=== PATIENT | female | born 1995 | race American Indian/Alaskan Native ===

== ENCOUNTER 2018-08-15 23:59 | Inpatient (IN) | payer SELFPAY ==
[2018-08-16] MEDS ORDERED: NACL 0.9% 1000 ML 1,000 ML IV ONE (00:03)
[2018-08-16] MEDS ORDERED: ATROVENT IH ONE (00:03)
[2018-08-16] MEDS ORDERED: ADRENALINE P/F SUB-Q ONE (00:03)
[2018-08-16] MEDS ORDERED: MAGNESIUM SULFATE 2GM/50ML 2 GM/50 ML BAG IV ONE (00:03)
--- NOTE | 2018-08-16 00:09 | Emergency Department Report ---
ED Shortness of Breath HPI - General Stated Complaint: LAMBERTO Time Seen by Provider: 08/16/18 00:02 - History of Present Illness Initial Comments: Analia is a 22 yo female with hx of severe persistent asthma with hx of intubation who presents with severe shortness of breath. She was discovered by EMS outside of her apartment. Limited hx due to severe shortness of breath and work of breathing. Room air oxygen saturation 95% according to EMS - Related Data Allergies Allergy/AdvReac Type Severity Reaction Status Date / Time No Known Allergies Allergy Unverified 08/16/18 00:24 ED Review of Systems ROS: Stated complaint: LAMBERTO Other details as noted in HPI Comment: Unobtainable due to pts medical conditions (severe work of breathing s evere respiratory distress) ED Past Medical Hx - Past Medical History Previous Medical History?: Yes Hx Asthma: Yes - Surgical History Additional Surgical History: Unable to obtain - Family History Family history: other (noncontributory) - Social History Smoking Status: Never Smoker ED Physical Exam - General General appearance: alert, in distress, other (severe respiratory distress or severe work of breathing) - Head Head exam: Present: atraumatic, normocephalic - Eye Eye exam: Present: normal appearance - ENT ENT exam: Present: mucous membranes moist - Neck Neck exam: Present: normal inspection, full ROM - Respiratory Respiratory exam: Present: wheezes, accessory muscle use, decreased breath sounds, prolonged expiratory. Absent: respiratory distress, rales, rhonchi, stridor - Cardiovascular Cardiovascular Exam: Present: normal rhythm, tachycardia, normal heart sounds. Absent: systolic murmur, diastolic murmur, rubs, gallop - GI/Abdominal GI/Abdominal exam: Present: soft, normal bowel sounds. Absent: distended, tenderness, guarding, rebound - Extremities Exam Extremities exam: Present: normal inspection - Back Exam Back exam: Present: normal inspection - Neurological Exam Neurological exam: Present: alert, oriented X3 - Psychiatric Psychiatric exam: Present: anxious - Skin Skin exam: Present: warm, dry, intact, normal color. Absent: rash ED Course Vital Signs 08/16/18 08/16/18 08/16/18 00:04 00:07 00:10 Temperature 96.9 F L Pulse Rate 144 H 149 H 149 H Pulse Rate [ 149 H Bilateral Throughout] Respiratory 17 27 H 28 H Rate Respiratory 28 H Rate [Bilateral Throughout] Blood Pressure 141/92 141/92 O2 Sat by Pulse 96 100 100 Oximetry 08/16/18 08/16/18 08/16/18 00:13 00:15 00:19 Temperature Pulse Rate 149 H 149 H 145 H Pulse Rate [ Bilateral Throughout] Respiratory 19 18 23 Rate Respiratory Rate [Bilateral Throughout] Blood Pressure O2 Sat by Pulse 100 100 99 Oximetry 08/16/18 08/16/18 08/16/18 00:31 00:45 01:01 Temperature Pulse Rate 131 H 142 H Pulse Rate [ Bilateral Throughout] Respiratory 21 Rate Respiratory Rate [Bilateral Throughout] Blood Pressure 141/92 141/92 141/92 O2 Sat by Pulse 100 100 100 Oximetry 08/16/18 01:15 Temperature Pulse Rate Pulse Rate [ Bilateral Throughout] Respiratory Rate Respiratory Rate [Bilateral Throughout] Blood Pressure 141/92 O2 Sat by Pulse 100 Oximetry ED Medical Decision Making - Lab Data Result diagrams: 08/16/18 00:11 08/16/18 00:11 - Radiology Data Radiology results: image reviewed AP portable chest one view: hyperinflated lungs, no infiltrate no PTX - Medical Decision Making Upon patient's arrival, I observed severe work of breathing. On auscultation poor air movement, silent chest. I obtained history from paramedics. I spoke with respiratory therapist who applied BiPAP. I coached patient through our treatment plan. I ordered epinephrine subcutaneous administration, IV magnesium as well as continuous albuterol neb therapy with Atrovent. Upon reassessment, patient speaking full word sentences without BiPAP, however she does still require noninvasive positive pressure ventilation due to work of breathing. Normal and she has severe asthma attacks with infection. She stated that she had developed cold symptoms on yesterday. Last hospitalization was January. Due to lack of health care insurance she does not have asthma control medications. She only has access to albuterol MDI. Admitted to the hospitalist service in fair condition on BiPAP. She declined AB G. Critical Care Time: Yes Critical care time in (mins) excluding proc time.: 40 Critical care attestation.: If time is entered above; I have spent that time in minutes in the direct care of this critically ill patient, excluding procedure time. 40 minutes of critical care time excluding procedures were used in the care of the patient. Patient required multiple assessments and interventions. I reviewed the electronic medical record. I spoke with consultants involved in the care of the patient. ED Disposition Clinical Impression: Acute respiratory failure with hypoxia, Status asthmaticus Disposition: OP ADMIT IP TO THIS HOSP Is pt being admited?: Yes Does the pt Need Aspirin: No Condition: Fair
[2018-08-16] MEDS: PROVENTIL IH ONE ×2 (00:10→00:27)
[2018-08-16 00:29] LABS: Basophils % (Auto) 0.3 % (0.0-1.8); Eosinophils # (Auto) 0.5 K/mm3 (0.0-0.4); Eosinophils % (Auto) 3.5 % (0.0-4.3); Hemoglobin 13.6 gm/dl (10.1-14.3); Lymphocytes # (Auto) 2.5 K/mm3 (1.2-5.4); Lymphocytes % (Auto) 16.3 % (13.4-35.0); Mean Corpuscular HGB Conc 34 % (30-34); Mean Corpuscular Volume 92 fl (79-97); Monocytes # (Auto) 1.2 K/mm3 (0.0-0.8); Monocytes % (Auto) 8.2 % (0.0-7.3); Platelet Count 255 K/mm3 (140-440); Red Blood Count 4.33 M/mm3 (3.65-5.03); Red Cell Distribution Width 14.1 % (13.2-15.2)
[2018-08-16 00:51] LABS: BUN/Creatinine Ratio 10; Blood Urea Nitrogen 6 mg/dL (7-17); Calcium 8.7 mg/dL (8.4-10.2); Hemolysis Index 5
[2018-08-16] MEDS ORDERED: LEVAQUIN PO ONE (01:43)
--- NOTE | 2018-08-16 02:22 | XRay Report ---
FINAL REPORT PROCEDURE: XR CHEST 1V AP TECHNIQUE: Chest radiograph anteroposterior view. CPT 77763 HISTORY: Asthma COMPARISON: No prior studies are available for comparison. FINDINGS: Heart: Normal. Mediastinum/Vessels: Normal. Lungs/Pleural space: Lungs are expanded. There are no infiltrates, effusions or pneumothoraces.. Bony thorax: No acute osseous abnormality. Life support devices: None. IMPRESSION: No acute cardiopulmonary abnormality.
[2018-08-16] MEDS ORDERED: ROBITUSSIN PO ONE (03:44)
[2018-08-16] MEDS ORDERED: TYLENOL PO PRN (03:47)
[2018-08-16] MEDS ORDERED: ZOFRAN IV PRN (03:48)
[2018-08-16] MEDS ORDERED: LEVAQUIN ONE (04:39)
[2018-08-16] MEDS ORDERED: SOLU-Medrol IV ONE ×2 (05:59→08:30)
[2018-08-16] MEDS: PROVENTIL IH PRN (07:57)
--- NOTE | 2018-08-16 07:59 | History and Physical Report ---
CHIEF COMPLAINT: Shortness of breath. HISTORY OF PRESENT ILLNESS: The patient is a 22-year-old female with a history of asthma, that has been treated with intubation in the past, presenting with shortness of breath that became severe. EMS was called. The patient was transported back to the Emergency Room and was found to have recurrent shortness of breath despite treatment. There was no history of fever or chills. No history of chest pain, nausea or vomiting; however, the patient was complaining of cough. PAST MEDICAL HISTORY: Pertinent for asthma. PAST SURGICAL HISTORY: Unremarkable. FAMILY HISTORY: Noncontributory. SOCIAL HISTORY: The patient does not move cigarettes, does not drink alcohol and does not use illicit drugs. MEDICATIONS: The patient's home medications are not known. ALLERGIES: There are no known drug allergies. REVIEW OF SYSTEMS: CONSTITUTIONAL: There is no fever, no chills, no diaphoresis. HEENT: There is no headache or sore throat. CARDIOVASCULAR SYSTEM: There is no chest pain or orthopnea. RESPIRATORY SYSTEM: shortness of breath is present. Cough is present. GASTROINTESTINAL SYSTEM: There is no nausea, no vomiting, no abdominal pain, diarrhea or constipation. NEUROLOGICAL SYSTEM: There is no numbness, no dizziness, no altered mental status. MUSCULOSKELETAL SYSTEM: There is no joint pain or swelling. DERMATOLOGICAL SYSTEM: There is no skin rash or itching. GENITOURINARY SYSTEM: There is no dysuria, hematuria or flank pain. Rest of system review is normal. PHYSICAL EXAMINATION: GENERAL: At the time of exam, the patient was found to be alert, oriented x 3 and in mild to moderate distress due to shortness of breath. VITAL SIGNS: At the initial time of presentation showed temperature of 96.9 degrees Fahrenheit, pulse of 144, respirations 17, blood pressure 141/92, and O2 sat of 96% on oxygen. HEENT: Showed pupils to be equal, round and reactive to light and accommodating. Extraocular muscles are intact. NECK: Supple with no JVD or carotid bruit. CARDIOVASCULAR SYSTEM: Showed normal first and second heart sounds with no gallops or murmurs. RESPIRATORY SYSTEM: Showed reduced air entry on both sides of the lungs with expiratory wheezing. GASTROINTESTINAL SYSTEM: Showed abdomen to be full, soft, nontender with no organomegaly or rigidity. NEUROLOGICAL: Showed no focal deficit. MUSCULOSKELETAL SYSTEM: Showed no joint swelling or tenderness. DERMATOLOGICAL SYSTEM: Showed no skin rash. GENITOURINARY SYSTEM: Showing no costovertebral angle tenderness. PERTINENT AND IMAGING DATA: The patient had CBC done with elevated white count of 15,100. Normal hemoglobin and normal hematocrit with CBC differential showing elevated segmentary neutrophil count of 71.7%. The patient's chemistry was remarkable. The patient had a chest x-ray done that shows no acute cardiopulmonary disease. DIAGNOSES: Asthma exacerbation. PLAN OF CARE: 1. The patient will be admitted to [facility]. 2. The patient will continue BiPAP treatment started in the Emergency Room. 3. The patient will be on IV Levaquin 750 mg daily. 4. The patient will be on albuterol nebulizer 2.5 mg every 4 hours as needed for shortness of breath and wheezing. 5. The patient will be treated with IV Solu-Medrol 125 mg once and then 60 mg IV every 8 hours. 6. The patient will be on Robitussin 200 mg by mouth every 4 hours as needed for cough and will be on p.r.n. medications like Tylenol 650 mg by mouth every 4 hours for fever and headache and IV Zofran 4 mg every 8 hours as needed for nausea and vomiting. 7. The patient will be on regular diet. JOB# [id number] OCN/NTS
[2018-08-16] MEDS: PULMICORT IH SCH ×2 (13:14→20:01)
[2018-08-16] MEDS: BROVANA NEBU IH SCH ×2 (13:15→20:01)
[2018-08-16] MEDS ORDERED: SOLU-Medrol IV SCH (14:00)
--- NOTE | 2018-08-16 14:17 | Consultation ---
History of Present Illness Consult date: 08/16/18 Reason for consult: dyspnea, asthma History of present illness: 32-year-old -[place] female, called to evaluate due to severe asthma episode. The patient reports that she had been sick with a cold last few days and started with shortness of breath and wheezing 24 hours ago. She apparently has albuterol home and she used her rescue inhaler to no avail. EMS were called and they give her urgent treatment at home first and then she was rushed to the ED. There, she was started on BiPAP plus rescue therapy with DuoNeb plus magnesium. She stabilized and was admitted to the floor, after spending some hours on BiPAP. Called to evaluate. The patient reported her breathing is better now. She does report some mild chest tightness. She denies fever. 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 She denies fever or myalgia or runny nose at this time. Some limited expectoration noted. She had asthma since age 13. Claims not to be smoking. Past medical history of near fatal asthma with intubation at age 13 Medications and Allergies Allergies Allergy/AdvReac Type Severity Reaction Status Date / Time No Known Allergies Allergy Verified 08/16/18 03:57 Home Medications Medication Instructions Recorded Confirmed Last Taken Type ALBUTEROL Inhaler(NF) 2 puff PRN PRN 08/16/18 08/16/18 Unknown History Active Meds: Active Medications Acetaminophen (Tylenol) 650 mg PO Q4H PRN PRN Reason: Fever >101 Albuterol (Proventil) 2.5 mg IH Q4H PRN PRN Reason: Shortness Of Breath Last Admin: 08/16/18 07:57 Dose: 2.5 mg Documented by: Arformoterol Tartrate (Brovana Nebu) 15 mcg IH Q12HRT XENA Last Admin: 08/16/18 13:15 Dose: 15 mcg Documented by: Budesonide (Pulmicort) 0.5 mg IH Q12HRT XENA Last Admin: 08/16/18 13:14 Dose: 0.5 mg Documented by: Levofloxacin/Dextrose (Levaquin 750mg/150ml) 750 mg in 150 mls @ 100 mls/hr IV Q24H XENA; Protocol Methylprednisolone Sodium Succinate (Solu-Medrol) 60 mg IV Q8HR XENA Ondansetron HCl (Zofran) 4 mg IV Q8H PRN PRN Reason: Nausea And Vomiting Review of Systems Constitutional: anorexia, fatigue, weakness Cardiovascular: palpitations, no chest pain, no orthopnea, no rapid/irregular heart beat, no edema Respiratory: cough, shortness of breath, dyspnea on exertion, wheezing, no excessive sputum, no hemoptysis Physical Examination Vital signs: Vital Signs Pulse Resp Pulse Ox 144 H 17 96 08/16/18 00:04 08/16/18 00:04 08/16/18 00:04 General appearance: no acute distress Eyes: non-icteric ENT: oropharynx moist Neck: supple, no JVD Ascultation: Bilateral: diminished breath sounds, wheezes Cardiovascular: regular rate and rhythm Gastrointestinal: normoactive bowel sounds Integumentary: normal Extremities: no cyanosis, no edema Musculoskeletal: no deformities Results - Laboratory Findings CBC and BMP: 08/16/18 00:11 08/16/18 00:11 Abnormal lab findings: Abnormal Labs 08/16/18 08/16/18 00:11 00:11 WBC 15.1 H [place] % (Auto) 8.2 H [place] # 1.2 H Eos # 0.5 H Seg Neutrophils % 71.7 H Seg Neutrophils # 10.9 H BUN 6 L Creatinine 0.6 L Glucose 120 H - Diagnostic Findings Chest x-ray: report reviewed, image reviewed Assessment and Plan Status asthmaticus URTI Secondhand smoke exposure Past medical history of near fatal asthma episode Recommendations Continue albuterol nebulizations every 4 hours. Can probably go to prednisone 40 mg by mouth daily at this point Montelukast 10 mg by mouth daily at bedtime We'll need to be discharged on either Advair or Symbicort plus montelukast Respiratory therapist to train patient on use of peak flow monitoring Advised patient to avoid secondhand smoke exposure as much as possible Outpatient for function tests evaluation Patient looks underweight. Could not evaluate all risk factors but, may benefit from HIV screening Thanks
--- NOTE | 2018-08-16 15:23 | Event Note ---
Date: 08/16/18 Pt seen and examined, noticing some improvement but not yet at baseline. Continue current care at this time.
[2018-08-16] MEDS: DELTASONE PO SCH (15:40)
[2018-08-16] MEDS ORDERED: SINGULAIR PO SCH (22:00)
[2018-08-16] MEDS ORDERED: LEVAQUIN 750MG/150ML 750 MG/150 ML BAG IV SCH (22:00)
[2018-08-17] MEDS: PULMICORT IH SCH (07:57)
[2018-08-17] MEDS: BROVANA NEBU IH SCH (07:57)
--- NOTE | 2018-08-17 11:19 | Discharge Summary ---
Providers - Providers Date of Admission: 08/16/18 02:13 Attending physician: EDDIE JIMENEZ MD 08/16/18 10:44 Consult to Physician [CONS] Routine Comment: Consulting Provider: NATE TADEO Physician Instructions: Reason For Exam: ASTHMA EXACERBATION Primary care physician: SAVANAH PAEZ Hospitalization Reason for admission: SHORTNESS OF BREATH Condition: Stable Hospital course: 32-year-old -[place] female, called to evaluate due to severe asthma episode. The patient reports that she had been sick with a cold last few days and started with shortness of breath and wheezing 24 hours ago. She apparently has albuterol home and she used her rescue inhaler to no avail. EMS were called and they give her urgent treatment at home first and then she was rushed to the ED. There, she was started on BiPAP plus rescue therapy with DuoNeb plus magnesium. She stabilized and was admitted to the floor, after spending some hours on BiPAP. Called to evaluate. The patient reported her breathing is better now. She does report some mild chest tightness. She denies fever. 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 She denies fever or myalgia or runny nose at this time. Some limited expectoration noted. She had asthma since age 13. Claims not to be smoking. Past medical history of near fatal asthma with intubation at age 13 Patient was treated with steroids taper and Nebs, with remarkable improvement. Discharge Diagnosis Asthma exacerbation Acute Respiratory failure Disposition: DC-01 TO HOME OR SELFCARE Time spent for discharge: 35 MINS Core Measure Documentation - Palliative Care Palliative Care/ Comfort Measures: Not Applicable - Core Measures Any of the following diagnoses?: none Exam - Constitutional Vitals: Temp Pulse Resp BP Pulse Ox 98.1 F 104 H 16 100/57 96 08/17/18 07:39 08/17/18 07:39 08/17/18 07:39 08/17/18 07:39 08/17/18 07:39 General appearance: Present: no acute distress, well-nourished - EENT Eyes: Present: PERRL, EOM intact ENT: hearing intact, clear oral mucosa, dentition normal - Neck Neck: Present: supple, normal ROM - Respiratory Respiratory effort: normal Respiratory: bilateral: CTA - Cardiovascular Rhythm: regular Heart Sounds: Present: S1 & S2. Absent: systolic murmur, diastolic murmur - Extremities Extremities: no ischemia, pulses intact, No edema, normal temperature, normal color, Full ROM Peripheral Pulses: within normal limits - Abdominal General gastrointestinal: Present: soft, non-tender, non-distended, normal bowel sounds - Integumentary Integumentary: Present: clear, warm, dry - Musculoskeletal Musculoskeletal: strength equal bilaterally - Psychiatric Psychiatric: appropriate mood/affect, intact judgment & insight - Neurologic Neurologic: CNII-XII intact - Allied Health Allied health notes reviewed: nursing Plan Activity: advance as tolerated, fall precautions Diet: regular Special Instructions: record daily BP diary Follow up with: YAMILETH MONTAGUE MD [Staff Physician] - 7 Days SAVANAH PAEZ MD [Primary Care Provider] - 7 Days Forms: Work/School Release Form Prescriptions: Montelukast [Singulair] 10 mg PO QHS #30 tablet ALBUTEROL Inhaler(NF) 2 puff IH PRN PRN 30 Days PRN Reason: Wheezing Budesonide/Formoterol Fumarate [Symbicort 160-4.5 Mcg Inhaler] 10.2 gm IH BID 30 Days hfa.aer.[email or web address] Prednisone [predniSONE 10 mg (6-Day Pack, 21 Tabs)] 10 mg PO .TAPER #1 tab.ds.pk
[2018-08-17 12:12] VITALS: BP 101/64
[2018-08-17] MEDS: PROVENTIL IH PRN (12:45)
[2018-08-17] MEDS: DELTASONE PO SCH (12:46)
== END 2018-08-17 13:38 | disposition home or self-care (01) | DRG 189 ==
LOC: ED 23:59 → 4A 08-16 02:13
PROVIDERS: ADMIT Internal Medicine; ATTEND Internal Medicine
PROC: 5A09357 Assistance with Respiratory Ventilation, Less than 24 Consecutive Hours, Continuous Positive Airway Pressure (ICD-10-PCS; principal; 2018-08-16)
DX: J96.01 Acute respiratory failure with hypoxia (principal); J45.902 Unspecified asthma with status asthmaticus; J45.901 Unspecified asthma with (acute) exacerbation; Z77.22 Contact with and (suspected) exposure to environmental tobacco smoke (acute) (chronic); J06.9 Acute upper respiratory infection, unspecified; Z79.899 Other long term (current) drug therapy
CPT/HCPCS: 36415; 71045; 80048; 85025; 94640; 94644; 96365; 96372; G0378; J0171; J1956; J2930; J3475; J7030; J7512